=== PATIENT | female | born 1990 | race Two or more races ===

== ENCOUNTER 2017-10-31 16:07 | Emergency (ER) | payer OTHER ==
[~2017-10-31] VITALS: Ht 152.4 cm; Wt 49.0 kg
[2017-10-31] MEDS ORDERED: MORPHINE SULFATE 4 MG/ML, 1ML ONE (16:52)
[2017-10-31] MEDS ORDERED: METOCLOPRAMIDE 5 MG/ML, 2ML ONE (16:52)
[2017-10-31] MEDS ORDERED: PLEASE ENTER ALLERGIES MC SCH (17:00)
[2017-10-31] MEDS ORDERED: MORPHINE SULFATE 4 MG/ML, 1ML IVPush PRN (17:00)
[2017-10-31] MEDS ORDERED: METOCLOPRAMIDE 5 MG/ML, 2ML IVPush ONE (17:00)
[2017-10-31] MEDS ORDERED: SODIUM CHLORIDE FLUSH 10ML SYR IVF ONE (17:00)
[2017-10-31] MEDS ORDERED: SODIUM CHLORIDE 0.9% 1,000ML IVBOLUS ONE ×2 (17:00→19:00)
[2017-10-31 17:09] LABS: BASOPHILS # (AUTO) 0.04 x10^3/uL (0-0.1); BASOPHILS % (AUTO) 0 % (0-1); EOSINOPHILS % (AUTO) 0 % (1-7); LYMPHOCYTES # (AUTO) 0.88 x10^3/uL (1-3.4); LYMPHOCYTES % (AUTO) 7 % (22-44); MD NO; MEAN CORPUSCULAR HEMOGLOBIN 28.3 pg (27.0-34.8); MEAN CORPUSCULAR HGB CONC 33.8 g/dL (32.4-35.8); MEAN CORPUSCULAR VOLUME 83.9 fL (80-100); MEAN PLATELET VOLUME 8.5 fL (7.4-10.4); MONOCYTES # (AUTO) 0.97 x10^3/uL (0.2-0.8); MONOCYTES % (AUTO) 7 % (2-9); NEUTROPHILS # (AUTO) 11.63 x10^3/uL (1.8-6.8); NEUTROPHILS % (AUTO) 86 % (42-75); PLATELET COUNT 246 x10^3/uL (130-400); RED BLOOD COUNT 5.87 x10^6/uL (3.82-5.3); RED CELL DISTRIBUTION WIDTH 14.2 % (9.6-15.2)
[2017-10-31 17:20] LABS: ALANINE AMINOTRANSFERASE 58 U/L (12-78); ALBUMIN 3.8 g/dL (3.4-5.0); ANION GAP 12 mmol/L (5-15); CALCIUM 8.9 mg/dL (8.5-10.1); CHLORIDE 107 mmol/L (98-107)
[2017-10-31 17:25] LABS: ALKALINE PHOSPHATASE 73 U/L (45-117); BILIRUBIN,TOTAL 0.6 mg/dL (0.2-1.0); TOTAL PROTEIN 8.2 g/dL (6.4-8.2)
[2017-10-31 18:33] LABS: MICROSCOPIC AUTO
[2017-10-31 18:36] LABS: CULTURE INDICATED? YES
[2017-10-31] MEDS ORDERED: OMNIPAQUE 350 MG/ML, 100ML BOTTLE ONE (19:19)
[2017-10-31 19:27] VITALS: BP 98/46
== END 2017-10-31 20:14 | disposition home or self-care (01) ==
LOC: ED 18:39
DX: R11.2 Nausea with vomiting, unspecified (principal); R19.7 Diarrhea, unspecified; R10.84 Generalized abdominal pain
CPT/HCPCS: 36415; 74177; 80053; 81001; 83690; 84703; 85025; 87086; 93005; 96361; 96374; 99285; J2765; J7030; Q9967

== ENCOUNTER 2019-05-28 10:02 | Emergency (ER) | payer OTHER ==
[~2019-05-28] VITALS: Ht 152.4 cm; Wt 49.0 kg
[2019-05-28] MEDS ORDERED: ONDANSETRON 2MG/ML, 2ML ONE ×2 (10:11→14:11)
[2019-05-28] MEDS ORDERED: MORPHINE SULFATE 4 MG/ML, 1ML ONE ×2 (10:11→11:26)
[2019-05-28] MEDS: MORPHINE SULFATE 4 MG/ML, 1ML IVPush PRN ×2 (10:22→11:27)
[2019-05-28] MEDS ORDERED: SODIUM CHLORIDE 0.9% 1,000ML IVBOLUS ONE (10:30)
[2019-05-28] MEDS ORDERED: ONDANSETRON 2MG/ML, 2ML IVPush ONE ×2 (10:30→14:30)
--- NOTE | 2019-05-28 10:53 | NUR ---
PT CAME IN CO "SEVER ABD PAIN AND CHILLS" PT STATED IT STARTED TODAY AT WORK. PT IS GRIMICING IN PAIN AND SHAKING. PT DENIES TRAUMA OR PAINFUL URINATION. IV FLUIDS INFUSING. PT MEDICATED PER MAR AND REPORTS PAIN IMRPOVEMENT
[2019-05-28 10:57] LABS: BASOPHILS # (AUTO) 0.03 x10^3/uL (0-0.1); BASOPHILS % (AUTO) 1 % (0-1); EOSINOPHILS % (AUTO) 0 % (1-7); LYMPHOCYTES # (AUTO) 0.89 x10^3/uL (1-3.4); LYMPHOCYTES % (AUTO) 14 % (22-44); MD NO; MEAN CORPUSCULAR HEMOGLOBIN 28.1 pg (27.0-34.8); MEAN PLATELET VOLUME 8.1 fL (7.4-10.4); MONOCYTES # (AUTO) 0.29 x10^3/uL (0.2-0.8); MONOCYTES % (AUTO) 5 % (2-9); NEUTROPHILS # (AUTO) 4.98 x10^3/uL (1.8-6.8); NEUTROPHILS % (AUTO) 80 % (42-75); PLATELET COUNT 223 x10^3/uL (130-400)
[2019-05-28 11:02] LABS: ALANINE AMINOTRANSFERASE 18 U/L (12-78); ALBUMIN 3.1 g/dL (3.4-5.0); ANION GAP 8 mmol/L (5-15); CALCIUM 7.7 mg/dL (8.5-10.1); CHLORIDE 115 mmol/L (98-107); CREATININE 0.94 mg/dL (0.55-1.02)
[2019-05-28 11:07] LABS: ALKALINE PHOSPHATASE 62 U/L (45-117); BILIRUBIN,TOTAL 0.4 mg/dL (0.2-1.0); TOTAL PROTEIN 6.2 g/dL (6.4-8.2)
--- NOTE | 2019-05-28 11:30 | NUR ---
PT CO OF PAIN. SEE MAR FOR INTERVENTIONS
--- NOTE | 2019-05-28 11:33 | NUR ---
PT REPORTS PAIN IMPROVEMENT. PT EDUCATED ON PLAN OF CARE
--- NOTE | 2019-05-28 11:58 | NUR ---
REPORT FROM BAUDILIO, ASSUME CARE OF PT AT THIS TIME. PT IN CT AT TIME OF REPORT.
[2019-05-28] MEDS ORDERED: OMNIPAQUE 350 MG/ML, 100ML BOTTLE ONE (12:00)
[2019-05-28 12:04] LABS: AMPHETAMINE SCREEN, URINE Negative (Negative); BARBITURATE SCREEN, URINE Negative (Negative); BENZODIAZEPINE SCREEN, URINE Negative (Negative); CANNABINOID SCREEN, URINE Positive (Negative); METHADONE SCREEN, URINE Negative (Negative); OPIATE SCREEN, URINE Positive (Negative)
[2019-05-28 12:05] LABS: COCAINE SCREEN, URINE Negative (Negative)
[2019-05-28 12:26] LABS: MICROSCOPIC INDICATED
[2019-05-28] MEDS ORDERED: KETOROLAC 30 MG/1 ML IVPush ONE (12:30)
[2019-05-28 12:34] LABS: CULTURE INDICATED? YES
[2019-05-28] MEDS ORDERED: KETOROLAC 30 MG/1 ML ONE (12:48)
--- NOTE | 2019-05-28 12:52 | NUR ---
ADD ON ORDER FOR TORADOL GIVEN. PT RATING PAIN AT 7/10, STATES IMMEDIATE DECREASE IN PAIN WITH INJECTION OF TORADOL. PT TO US. VSS/UPDATED IN COMPUTER.
--- NOTE | 2019-05-28 13:46 | NUR ---
US RESULTS BACK, PT FOR RECHECK.
--- NOTE | 2019-05-28 14:20 | NUR ---
PT GIVEN ZOFRAN FOR PERSISTENT NAUSEA. WATER PROVIDED FOR SMALL SIPS. PT PENDING DISCHARGE, CONTINUE TO MONITOR.
[2019-05-28 14:43] VITALS: BP 112/61
== END 2019-05-28 14:46 | disposition home or self-care (01) ==
LOC: ED 11:13
DX: N83.291 Other ovarian cyst, right side (principal); R94.31 Abnormal electrocardiogram [ECG] [EKG]; R11.2 Nausea with vomiting, unspecified
CPT/HCPCS: 36415; 74177; 76830; 80053; 80307; 81001; 83605; 84703; 85025; 87086; 93005; 96361; 96374; 96375; 96376; 99285; J1885; J2270; J2405; J7030; Q9967